=== PATIENT | male | born 1955 | race African-American/Black ===

== ENCOUNTER → 2019-01-28 | Outpatient (CLI) | payer OTHER ==
[~2019-01-28] MED LIST: ALBU2.5V8 IH; EZET10TA18 PO; OMEG1CAP6 PO
--- NOTE | 2019-01-28 13:36 | KCIC ---
CT of the chest without contrast. Low dose lung cancer screening protocol 01/28/2019 INDICATION: High risk patient with significant smoking history. Patient reports 25 year smoking history. COMPARISON STUDY: None TECHNIQUE: Multidetector CT imaging of the chest was performed using a low-dose, lung cancer screening protocol. FINDINGS: Basilar predominant bronchiectasis noted bilaterally. Relatively mild emphysematous changes appear to be present. Heart size is normal. No pericardial effusion is seen. Limited noncontrast enhanced evaluation the mediastinum demonstrates no pathologically enlarged adenopathy. No focal consolidative infiltrate is seen. No effusion or pneumothorax is identified. Limited visualization of the upper abdomen demonstrates no acute abnormality. What appears to be focal eventration of the left diaphragm is noted.No acute osseous changes are seen. Impression: 1. No concerning pulmonary nodules are identified. Lung RADS CATEGORY 1. Continued annual screening, with next exam in 12 months recommended 2. Basilar predominant bronchiectasis mild emphysematous changes. Given history, findings most likely reflect changes of COPD. CT DOSING PQRS STATEMENT: One or more of the following individualized dose reduction techniques were utilized for this examination: 1. Automated exposure control 2. Adjustment of the mA and/or kV according to patient size 3. Use of iterative reconstruction technique Electronically signed by: Nate Don MD (01/28/2019 1:33 PM) [id number]
== END | disposition home or self-care (01) ==
LOC: KCIC CT 08:18
PROVIDERS: ATTEND Internal Medicine Pulmonary Disease
DX: Z12.2 Encounter for screening for malignant neoplasm of respiratory organs (principal); J47.9 Bronchiectasis, uncomplicated; J43.9 Emphysema, unspecified; Z87.891 Personal history of nicotine dependence
CPT/HCPCS: G0297

== ENCOUNTER → 2021-09-12 | Outpatient (CLI) | payer OTHER ==
[~2021-09-12] MED LIST changes: -ALBU2.5V8 IH; -EZET10TA18 PO; +EZET10TA20 PO; +PROVENTIL HFA6.7 GM IH
--- NOTE | 2021-09-12 17:37 | RAD ---
EXAMINATION: XR CHEST 2V CLINICAL HISTORY: Cough, shortness of breath. EXAM DATE/TIME: 09/12/2021 4:36 PM COMPARISON: 09/18/2011 FINDINGS: Lines, Tubes, and Devices: None. Cardiomediastinal Silhouette: Normal heart size. Lungs and Pleura: No definitive evidence of focal airspace consolidation or pleural effusion. Pulmona ry vasculature unremarkable. Diaphragmatic eventration bilaterally, similar to prior study. Bones and Soft Tissues: Degenerative changes in the thoracic spine. IMPRESSION: No definitive evidence of acute cardiopulmonary abnormality. Electronically signed by: Sukhwinder Grande DO (09/12/2021 5:35 PM) [id number]
== END ==
LOC: RAD 15:58
PROVIDERS: ATTEND Internal Medicine Pulmonary Disease
DX: R05.9 Cough, unspecified (principal); R06.02 Shortness of breath; M47.814 Spondylosis without myelopathy or radiculopathy, thoracic region
CPT/HCPCS: 71046